=== PATIENT | female | born 1965 | race African-American/Black ===

== ENCOUNTER 2019-09-04 12:12 | Emergency (ER) | payer MEDICAID ==
[~2019-09-04] VITALS: Ht 139.7 cm; Wt 36.0 kg
[2019-09-04] MEDS ORDERED: AZEL6DRO EACHEYE (12:48)
[2019-09-04 13:01] VITALS: BP 131/78
== END 2019-09-04 13:06 | disposition home or self-care (01) ==
LOC: ER 12:12
DX: H10.13 Acute atopic conjunctivitis, bilateral (principal); Z79.899 Other long term (current) drug therapy
CPT/HCPCS: 99283

== ENCOUNTER 2020-10-13 14:59 | Emergency (ER) | payer MEDICAID ==
[~2020-10-13] VITALS: Ht 137.2 cm; Wt 34.6 kg
[~2020-10-13 14:59] MED LIST: AZEL6DRO EACHEYE
[2020-10-13 16:19] VITALS: BP 125/71
[2020-10-13] MEDS ORDERED: PENI500T2 PO (18:29)
== END 2020-10-13 19:14 | disposition home or self-care (01) ==
LOC: ER 15:00
DX: K05.00 Acute gingivitis, plaque induced (principal); K08.89 Other specified disorders of teeth and supporting structures; Z79.2 Long term (current) use of antibiotics; Z79.899 Other long term (current) drug therapy
CPT/HCPCS: 99283